=== PATIENT | male | born 1990 | race Caucasian/White ===

== ENCOUNTER 2020-06-07 14:33 | Emergency (ER) | payer OTHER ==
[2020-06-07 14:50] VITALS: BP 118/72; PULSE 83; TEMP 97.1; BMI 28.3
== END 2020-06-07 15:54 | disposition home or self-care (01) ==
LOC: JERFT 14:33
DX: M25.462 Effusion, left knee (principal)
CPT/HCPCS: 73560-TC-LT-FY; 99283-25